=== PATIENT | female | born 1995 | race African-American/Black ===

== ENCOUNTER 2017-04-24 15:34 | Emergency (ER) | payer OTHER ==
[~2017-04-24] VITALS: Ht 157.5 cm; Wt 99.8 kg
[~2017-04-24 15:34] MED LIST: BACTRIM DS TAB1 EACH PO; NITROFURANTOIN100 MG PO; ONDANSETRON HCL4 M2 PO
[2017-04-24] MEDS ORDERED: CLEOCIN HCL150 MG PO (15:45)
[2017-04-24 16:40] LABS: ABSOLUTE NEUTROPHILS 3.4 thou/uL (1.4-8.2); BASOPHILS 0.3 % (0.0-2.0); HEMATOCRIT 32.4 % (37.0-47.0); LYMPHOCYTES 14.2 % (24.0-44.0); MCH 25.9 pg (26.0-34.0); MCHC 34.1 g/dL (28.0-37.0); MCV 76.1 fL (80.0-100.0); MONOCYTES 4.1 % (1.0-8.0); PLATELET COUNT 217 thou/uL (150-400); POLYS 81.4 % (36.0-66.0); RBC 4.26 mil/uL (4.20-5.00); RDW 16.9 % (10.5-14.5); WBC 4.2 thou/uL (4.0-11.0)
[2017-04-24 16:41] LABS: MANUAL DIFF NO
[2017-04-24 16:49] LABS: CALCIUM 8.3 mg/dL (8.5-10.1); POTASSIUM 3.2 mmol/L (3.5-5.1)
[2017-04-24 16:54] LABS: DIRECT BILIRUBIN 0.1 mg/dL (<0.1-0.3); TOTAL BILIRUBIN 0.4 mg/dL (<0.1-1.0); TOTAL PROTEIN 7.8 g/dL (6.4-8.2)
[2017-04-24 17:29] LABS: URINE BILIRUBIN NEGATIVE (Negative); URINE BLOOD NEGATIVE (Negative); URINE COLOR YELLOW; URINE GLUCOSE-RANDOM* NEGATIVE (Negative); URINE KETONES NEGATIVE (Negative); URINE NITRITE NEGATIVE (Negative); URINE PROTEIN (DIPSTICK) TRACE (Negative); URINE UROBILINOGEN 0.2 E.U./dl (0.2-1.0)
[2017-04-24] MEDS ORDERED: ZPAK PO (18:20)
[2017-04-24] MEDS ORDERED: ONDANSETRON HCL4 M2 PO (18:23)
[2017-04-24] MEDS ORDERED: IBUPROFEN 600600 M1 PO (18:23)
[2017-04-24 19:15] VITALS: BP 127/65
== END 2017-04-24 21:14 | disposition home or self-care (01) ==
LOC: ER 15:34
PROVIDERS: Nurse Practitioner
DX: J18.9 Pneumonia, unspecified organism (principal)

== ENCOUNTER 2019-10-05 11:13 | Emergency (ER) | payer OTHER ==
[~2019-10-05] VITALS: Ht 157.5 cm; Wt 99.8 kg
[~2019-10-05 11:13] MED LIST changes: +CLEOCIN HCL150 MG PO; +IBUPROFEN 600600 M1 PO; +METFORMIN HCL500 MG PO; +ZPAK PO
[2019-10-05 11:29] LABS: URINE BILIRUBIN NEGATIVE (Negative); URINE BLOOD NEGATIVE (Negative); URINE CLARITY CLEAR; URINE COLOR YELLOW; URINE GLUCOSE-RANDOM* NEGATIVE (Negative); URINE KETONES NEGATIVE (Negative); URINE LEUKOCYTES-REFLEX NEGATIVE (Negative); URINE NITRITE-REFLEX NEGATIVE (Negative); URINE PROTEIN (DIPSTICK) NEGATIVE (Negative); URINE UROBILINOGEN 0.2 E.U./dl (0.2-1.0)
[2019-10-05 12:11] LABS: ABSOLUTE NEUTROPHILS 7.4 thou/uL (1.4-8.2); BASOPHILS 0.4 % (0.0-2.0); EOSINOPHILS 1.7 % (0.0-3.0); HEMATOCRIT 33.2 % (37.0-47.0); HEMOGLOBIN 11.1 gm/dL (12.0-15.0); LYMPHOCYTES 21.3 % (24.0-44.0); MCH 26.9 pg (26.0-34.0); MCHC 33.5 g/dL (28.0-37.0); MCV 80.3 fL (80.0-100.0); MONOCYTES 3.9 % (1.0-8.0); PLATELET COUNT 316 thou/uL (150-400); POLYS 72.7 % (36.0-66.0); RBC 4.14 mil/uL (4.20-5.00); RDW 17.5 % (10.5-14.5); WBC 10.1 thou/uL (4.0-11.0)
[2019-10-05 12:26] LABS: CALCIUM 9.6 mg/dL (8.5-10.1); CREATININE 0.7 mg/dL (0.6-1.0)
[2019-10-05 12:27] LABS: POTASSIUM 4.5 mmol/L (3.5-5.1)
[2019-10-05 15:05] VITALS: BP 101/66
== END 2019-10-05 15:07 | disposition home or self-care (01) ==
LOC: ER 11:13
PROVIDERS: Nurse Practitioner Family
DX: O26.891 Other specified pregnancy related conditions, first trimester (principal); R10.32 Left lower quadrant pain; R11.0 Nausea; N89.8 Other specified noninflammatory disorders of vagina; E28.2 Polycystic ovarian syndrome; Z3A.01 Less than 8 weeks gestation of pregnancy; Z88.8 Allergy status to other drugs, medicaments and biological substances